=== PATIENT | female | born 1960 | race American Indian/Alaskan Native ===

== ENCOUNTER 2016-08-27 07:07 | Day surgery (SDC) | payer OTHER, MEDICARE, MEDICAID ==
[2016-08-27] MEDS ORDERED: Midazolam 2 MG/2 ML VIAL ONE (09:31)
[2016-08-27] MEDS ORDERED: Propofol 10 mg/ml Inj (20 ML) ONE (09:32)
[2016-08-27] MEDS ORDERED: Bupivacaine HCl 0.5% PF (10 ml) Inj ONE (09:44)
[2016-08-27] MEDS ORDERED: cefOXitin IV 2 gm in Dextrose 2 GM/50 ML BAG IVPB ONE (09:45)
[2016-08-27] MEDS ORDERED: Lactated Ringer's 1,000 ML IV ONE ×2 (09:50→11:15)
[2016-08-27] MEDS ORDERED: Rocuronium 10 mg/ml (5 ml) ONE (11:02)
[2016-08-27 11:42] VITALS: BMI 32.3
[2016-08-27] MEDS ORDERED: Lactated Ringer's 1,000 ML IV SCH (11:45)
--- NOTE | 2016-08-27 11:51 | PCM.SURG1 ---
Surgeon's Initial Post Op Note - Surgeon's Notes Surgeon: Maricruz Crespo MD Parts Cataloguer: Corona Flores MD Type of Anesthesia: General Endo Pre-Operative Diagnosis: Ovarian cyst, possible dermoid, postmenospuasl bleeding , thickened endometirum of ultrasound Operative Findings: uteurs 6-8 week size, bilaterl ostial visualized, no gross masses, normal appearing ovaries bilaterally, no gross evdiece of ovarian cyst, normal appearing uterus, normal tubes consistent with previous tubal ligation, omental adhesions. Dr Corona Flores was ophthalmic surgical assistant and essential in gainign entry, establisihng pneouomperient, performing surgerin, retractin, exopsoure, removiing speciments, cloisng all laers and was presnt for entire case Post-Operative Diagnosis: pelvic adhesions, ovarian cyst, thickened endometrium Operation Performed: operative hysteroscopy, fractional dilatoin and currettage , operative laparscopy, left partial oopherctomy, bilateral salpingecotmy Specimen/Specimens Removed: portin of left ovary, right and left fallopian cyst , endocervical currettingd, endometrial currettings Estimated Blood Loss: EBL {In ML}: 10 Blood Products Given: N/A Drains Used: No Drains Post-Op Condition: Good Date of Surgery/Procedure: 08/27/16 Time of Surgery/Procedure: 10:30
[2016-08-27] MEDS: HYDROmorphone 0.5 mg/0.5 ml ISec IVP PRN ×2 (11:58→12:35)
[2016-08-27] MEDS ORDERED: HYDROmorphone 0.5 mg/0.5 ml ISec ONE (12:35)
[2016-08-27] MEDS: DiphenhydrAMINE 50 mg/ml Inj IVP ONE ×2 (12:45→13:03)
[2016-08-27] MEDS ORDERED: DiphenhydrAMINE 50 mg/ml Inj ONE (12:46)
[2016-08-27 14:04] VITALS: O2SAT 99
[2016-08-27 14:15] VITALS: RESP 15
[2016-08-27 16:00] VITALS: TEMP 98
[2016-08-27 16:01] VITALS: BP 129/87; PULSE 76
--- NOTE | 2016-09-09 23:39 | PCM.OP ---
Operative Report - Operative Report Date of Surgery/Procedure: 08/27/16 Time of Surgery/Procedure: 09:00 Surgeon: Maricruz Crespo MD Pet Technologist: Doug Flores MD Anesthesia/Sedation: General endotracheal Pre-Operative Diagnosis: Ovarian cyst, possible dermoid, postmenospuasl bleeding , thickened endometirum of ultrasound Post-Operative Diagnosis: Pelvic adhesions, thickened stripe on endometrium Indication for Surgery: Pelvic pain, Persistent ovarian cyst, abnormal US findings, postmenopausal bleeding Operative Findings: uteurs 6-8 week size, bilaterl ostial visualized, no gross masses, normal appearing ovaries bilaterally, no gross evdiece of ovarian cyst, normal appearing uterus, normal tubes consistent with previous tubal ligation, omental adhesions. Dr Corona Flores was surgical coordinator and essential in gainign entry, establisihng pneouomperient, performing surgerin, retractin, exopsoure, removiing speciments, cloisng all laers and was presnt for entire case Procedure/Operation Description: Operative laparascopy, laparascopic bilateral salpingectomy, left partial oopherectomy, lysis of adhesions, operatie hystersocopy, fractional dilation and currettage. After informed consent was obtained, the patient was taken to the operating suite and placed in the supine position with the legs supported using strirrups. She had her abdomen appropriately prepped and draped in usual sterile fashion. Time out was confimred correct patient and correct procedure.A azul cathether was inserted into urethra to drain the bladder. The skin in and about the umbilicus was injected with a 0.25% 0.5ml Marcaine in an infraumbila manner. The skin was tented up with two towl clamps shey a 5mm skin incsion was made were brittany locl anesthesia was admnisted. A veres needle was inserted and corect placemetn was confirmed by normal saline adn insulatin of opening presure of 2mmg HG. pt abdomen was insulated until 15mmg HG. A 5mm laparascope was then inserted under direct visulation and pelvic adhesions wer noted anterioely of omentum to anterio abominal wall. A second adn third 5mm laparascopic port were inserted in right and left lower quadrants after adminsterine local anesthsic of 0.25 maracaine 0.5ml and isnerted under direct visualization. The omenal adhesions were carefully lysed in clear portsion away from any bowel or tissue with ligarue device. Nomral tubes identifeid and ovarines iwth no gorss dermoid. Eatch fallopian tube was grasped iw ashley clamp and carefully rescteion along mesosalpix ot 2cmwtin cornual. Specien was removed through 5mm port. Salpingecotmy was performed on adjacent side in similar manner. Good hemoasis noted. Left partial oopherectomy was perofrmed and sent to pathloyg on [facility]. Good hemostasis noted. Laparascopic ports were removed unser direct visulaliztion and abdomen was desufflated. Sterile dressings was applied. Attention was then turned to perineum. After bimanual examination, the cervix was exposed with a weighted vaginal speculum and the anterior lip of the cervix grasped with a single tooth tenaculum. Endocervical currettings were obtained and sent to pathlogy on [facility]. The uterus was sounded to a depth of 7 cm. The endocervical canal was then progressively dilated with Hanks and Hegar dilators to a #10 Hegar. The [facility] hysteroscope was then introduced into the uterine cavity using sterile saline solution as a distending media. The endometrial cavity was distended with fluids and the cavity visualized. The coronal areas were visualized bilaterally with corresponding tubal ostia. A moderate amount of proliferative appearing endometrium was noted. There were no direct intraluminal lesions seen. Hysteroscopy was removed. Gentle currettage done and sent to pathlogy on [facility]. All instrumetns removed. Good hemostasis noted. At end of procedure all needle sponge and instrumeent counts were noted ot be correct x 2. The patient tolerated the procedure well and transfereed to recovery in stable condition. Estimated Blood Loss: 5ml Complications: none Discharge & Condition: stable
== END 2016-08-27 16:00 | disposition home or self-care (01) ==
LOC: C.SDS 07:07
PROVIDERS: ATTEND Obstetrics & Gynecology
DX: N95.0 Postmenopausal bleeding (principal); N73.6 Female pelvic peritoneal adhesions (postinfective); R93.8 Abnormal findings on diagnostic imaging of other specified body structures
CPT/HCPCS: 58558; 58661; 88302; 88305; C1713; J0694; J1170; J1200; J2250; J2704; J3010; J7120